=== PATIENT | female | born 1940 | race Caucasian/White ===

== ENCOUNTER 2022-09-11 04:26 | Day surgery (SDC) | payer OTHER, BC ==
[2022-09-09 16:30] VITALS: BMI 30.8
[2022-09-11 12:10] VITALS: PULSE 76
[2022-09-11 12:17] VITALS: BP 124/76; RESP 17; TEMP 97.6
== END 2022-09-11 12:22 | disposition home or self-care (01) ==
LOC: JASU-ENDO 04:26
PROVIDERS: ATTEND Internal Medicine Gastroenterology
PROC: 0DBH8ZX Excision of Cecum, Via Natural or Artificial Opening Endoscopic, Diagnostic (ICD-10-PCS; 2022-09-11)
PROC: 0DBK8ZX Excision of Ascending Colon, Via Natural or Artificial Opening Endoscopic, Diagnostic (ICD-10-PCS; principal; 2022-09-11 10:30)
DX: Z12.11 Encounter for screening for malignant neoplasm of colon (principal); D12.0 Benign neoplasm of cecum; D12.2 Benign neoplasm of ascending colon; Z86.010 Personal history of colon polyps; R19.5 Other fecal abnormalities
CPT/HCPCS: 88305-TC

== ENCOUNTER 2023-05-14 04:29 | Day surgery (SDC) | payer OTHER, BC ==
[2023-05-07 14:42] VITALS: BMI 31.2
[2023-05-14 09:57] VITALS: TEMP 97.1
[2023-05-14 10:27] VITALS: BP 107/52; PULSE 89
[2023-05-14 10:45] VITALS: RESP 20
== END 2023-05-14 11:00 | disposition home or self-care (01) ==
LOC: JASU-ENDO 04:29
PROVIDERS: ATTEND Internal Medicine Gastroenterology
PROC: 0DBK8ZX Excision of Ascending Colon, Via Natural or Artificial Opening Endoscopic, Diagnostic (ICD-10-PCS; principal; 2023-05-14 10:00)
DX: Z86.010 Personal history of colon polyps (principal); D12.2 Benign neoplasm of ascending colon; K64.8 Other hemorrhoids
CPT/HCPCS: 88305-TC